=== PATIENT | male | born 1975 | race Caucasian/White ===

== ENCOUNTER 2022-08-02 13:05 | Outpatient (REF) | payer OTHER, SELFPAY ==
[2022-08-02 13:36] LABS: MANUAL DIFF FLAG NO
[2022-08-02 13:42] LABS: Basophils Percent Auto 0.7 % (0-2); Eosinophils Absolute Auto 0.2 X10*3/uL (0.0-0.4); Eosinophils Percent Auto 3.3 % (0-4); Hematocrit 28.2 % (42.0-52.0); Hemoglobin 9.2 g/dl (14.0-18.0); Imm Gran Abs Auto 0.02 X10*3/uL (0.00-0.03); Imm Gran Pct Auto 0.4 % (0.0-0.4); Lymphocytes Absolute Auto 0.6 X10*3/uL (1.2-4.9); Lymphocytes Percent Auto 11.1 % (20-40); Mean Corpuscular HGB Conc 32.6 g/dl (31.0-36.0); Mean Corpuscular Hemoglobin 32.6 pg (27.0-33.0); Mean Platelet Volume 8.8 fL (9.4-12.4); Monocytes Absolute Auto 0.4 X10*3/uL (0.1-1.2); Monocytes Percent Auto 6.2 % (2-11); Neutrophils Absolute Auto 4.5 x10*3/uL (2.0-8.3); Neutrophils Percent Auto 78.3 % (45-73); Red Blood Count 2.82 X10*6/uL (4.60-5.80); Red Cell Distribution Width 16.9 % (11.0-16.0); White Blood Count 5.7 X10*3/uL (4.8-10.8)
[2022-08-02 13:43] LABS: Platelet Count 68 X10*3/uL (160-400)
[2022-08-02 13:46] LABS: INTERNATIONAL NORM RATIO 2.3 (0.9-1.1); Prothrombin Time 26.8 SEC (10.0-13.1)
[2022-08-02 13:48] LABS: Partial Thromboplastin Time 43.8 SEC (26.0-36.4)
[2022-08-02 13:50] LABS: Ammonia 78 umol/L (13-55)
[2022-08-02 14:06] LABS: Alanine Aminotransferase 60 U/L (0-40); Alkaline Phosphatase 157 U/L (39-117); Anion Gap 11 (12-20); Aspartate Amino Transferase 76 U/L (5-37); Bilirubin Total 3.8 mg/dL (0.0-1.0); Blood Urea Nitrogen 11 mg/dL (9-16); C Reactive Protein 1.82 mg/dL (< or = 0.50); Calcium 7.5 mg/dL (8.4-10.2); Carbon Dioxide 25 mmol/L (22-29); Chloride 106 mmol/L (96-108); Cholesterol 98 mg/dL; Estimated Glomerular Filt Rate > 60; Glucose Random 121 mg/dL (60-115); HDL Cholesterol 19 mg/dL; LDL Cholesterol Calculated 71 mg/dl; Potassium 3.6 mmol/L (3.3-5.1); Sodium 138 mmol/L (135-145); Total Protein 4.7 g/dL (6.5-8.0); Triglycerides 44 mg/dL; Uric Acid 2.5 mg/dL (3.4-7.0)
[2022-08-02 14:23] LABS: Free T4 (Free Thyroxine) 1.34 ng/dL (0.71-1.85); Thyroid Stimulating Hormone < 0.01 uIU/mL (0.32-4.0); Vitamin D 25-OH Total 8.5 ng/mL (>30)
[2022-08-02 14:28] LABS: Erythrocyte Sedimentation Rate 8 MM/HR (0-15)
[2022-08-02 14:29] LABS: Cortisol Random 14.4 ug/dL
[2022-08-11 15:58] LABS: Testosterone, Total 3 ng/dL (250-1100)
== END 2022-08-02 13:06 | disposition home or self-care (01) ==
LOC: HO.LAB 13:05
PROVIDERS: PCP Internal Medicine; Visit Provider Internal Medicine
DX: R53.83 Other fatigue (principal); D64.9 Anemia, unspecified; R19.7 Diarrhea, unspecified; Z13.220 Encounter for screening for lipoid disorders
CPT/HCPCS: 36415; 80053; 80061; 82140; 82306; 82533; 84403; 84439; 84443; 84550; 85025; 85610; 85652; 85730; 86140